=== PATIENT | female | born 1980 | race Hispanic/Latino ===

== ENCOUNTER 2018-08-09 11:39 | Inpatient (IN) ==
[2018-08-09] MEDS ORDERED: RINGER'S SOLUTION,LACTATED 1,000 ML IV PRN ×2 (11:42→15:33)
[2018-08-09 12:43] LABS: Hematocrit 30.7 % (37.0-47.0); Hemoglobin 9.8 gm/dL (12.5-16.0); Mean Cell Volume 93.9 fl (78-100); Mean Corpuscular Hgb Conc 31.9 g/dl (32-36); Neutrophil # 7.6 K/mm3 (1.3-6.0); Neutrophil % 74.7 % (42-75.0); Platelet Count 271 K/mm3 (150-450); Red Blood Count 3.27 M/mm3 (4.2-5.4); Red Cell Distribution Width 14.9 % (11.5-14.0); White Blood Count 10.2 K/mm3 (4.0-10.5)
[2018-08-09 13:03] LABS: Urine Bilirubin Negative (NEGATIVE); Urine Blood Negative /ul (NEGATIVE); Urine Ketone Negative (NEGATIVE); Urine Nitrite Negative (NEGATIVE); Urine Protein Negative (NEGATIVE); Urine Specific Gravity 1.025 SP.GR. (1.005-1.010); Urine Urobilinogen Normal (NORMAL); Urine pH 6.5 pH (5.0-7.0)
[2018-08-09 13:13] LABS: Urine Appearance Slightly Cloudy (CLEAR); Urine Bacteria 1+; Urine Color Dark Yellow; Urine RBC None Seen /hpf (0-5); Urine WBC 0-5 /hpf (0-5)
[2018-08-09] MEDS ORDERED: CITRIC ACID/SODIUM CITRATE 60 ML BTL PO ONE (13:17)
[2018-08-09 14:09] LABS: Albumin * 2.5 gm/dl (3.4-5.0); Anion Gap 12.7 mmol/L (6.8-13.8); BUN/Creatinine Ratio 12.5 (9.0-21.6); Bilirubin, Total 0.4 mg/dL (0.0-1.1); Ca. Corrected For Albumin 10.1 mg/dL (8.4-10.2); Calcium * 9.2 mg/dL (7.9-10.9); Carbon Dioxide 26.5 mmol/L (24-32.6); Potassium 4.2 mmol/L (3.4-4.6); Total Protein 6.1 gm/dL (6.2-8.2)
[2018-08-09] MEDS ORDERED: LABETALOL HCL 5 MG/ML SYRINGE IV ONE (15:02)
[2018-08-09] MEDS ORDERED: ceFAZolin SODIUM 3 GM in DEXTROSE 5 % IN WATER 100 ML IV ONE ×2 (15:33)
[2018-08-09] MEDS ORDERED: OXYTOCIN 20 UNITS in RINGER'S SOLUTION,LACTATED 1,000 ML IV ONE (15:33)
--- NOTE | 2018-08-09 15:54 | ANES ---
Anesthesia Pre Procedure Eval Vitals/Labs: Last Vital Signs Temp 36.3 C 08/09/18 12:23 Pulse 90 08/09/18 12:23 Resp 18 08/09/18 12:23 BP 136/66 08/09/18 12:23 Pulse Ox 100 08/09/18 12:23 HOME MEDICATIONS aspirin 81 mg chewable tablet 81 mg PO DAILY 03/07/18 [Last Taken 08/08/18] famotidine 20 mg tablet 20 mg PO BID 84 Days #168 tab 06/08/18 [Last Taken 08/08/18] ferrous sulfate 325 mg (65 mg iron) tablet 325 mg PO BID #60 tab 06/08/18 [Last Taken 08/08/18] vitamin,calcium,fdzlzbnj-lgan-sbovc acid tablet 1 tab PO DAILY #30 tab 06/08/18 [Last Taken 07/23/18] blood-glucose meter kit See Dose Instructions .ROUTE .MEDSUPPLY #1 ea 07/11/18 [Last Taken Unknown] insulin syringes (disposable) 1 mL See Dose Instructions .ROUTE .MEDSUPPLY #500 ea 07/19/18 [Last Taken 08/08/18] blood sugar diagnostic strips See Dose Instructions .ROUTE .MEDSUPPLY #100 ea 07/31/18 [Last Taken Unknown] escitalopram 20 mg tablet 20 mg PO DAILY #30 tab 07/31/18 [Last Taken 08/08/18] lancets 28 gauge See Dose Instructions .ROUTE .MEDSUPPLY #100 ea 07/31/18 [Last Taken 08/08/18] levothyroxine 100 mcg capsule 200 mcg PO DAILY 90 Days #180 cap 07/31/18 [Last Taken 08/09/18] insulin NPH isophane U- 100 human 100 unit/mL subcutaneous suspension 24 unit SUBCUT HS #10 ml 08/03/18 [Last Taken 08/08/18] Allergies/Adverse Reactions: Allergies Allergy/AdvReac Type Severity Reaction Status Date / Time Penicillins Allergy Unknown rash Verified 08/09/18 12:11 - Planned Procedure Planned Procedure: C SECTION Medication List Reviewed:: Yes Allergies Verified: Yes Medical History (Last Reviewed 08/09/18 @ 15:53 by Santana Stephens CRNA) Chronic hypertension during (Acute) History of LEEP (loop electrosurgical excision procedure) of cervix complicating (Acute) Hypothyroid (Chronic) BMI 50.0-59.9, adult (Chronic) Anxiety and depression (Chronic) Advanced maternal age affecting , antepartum (Acute) AMA (advanced maternal age) multigravida 35+ 2018 Anemia Onset Date: 06/02/18 w/ BMI 50.0-59.9, adult Onset Date: 01/10/18 Body piercing ears Hx LEEP (loop electrosurgical excision procedure), cervix, Onset Date: 01/10/18 GAMA (obstructive sleep apnea) Onset Date: Unknown CPAP Settings-4cm Anxiety Onset Date: Unknown Depression Onset Date: Unknown Hypothyroid Onset Date: Unknown Stress incontinence Onset Date: Unknown resolved with mid-urethral sling Abnormal Pap smear of cervix Onset Date: Unknown Cervical dysplasia Onset Date: ~2015 [facility] I Surgical History (Last Reviewed 08/09/18 @ 15:53 by Santana Stephens CRNA) H/O LEEP Onset Date: ~2015 [place] I History of cryosurgery Onset Date: ~12/2016 of the cervix History of pubovaginal sling Onset Date: ~09/2015 Cystoscopy assisted Pubovaginal sling, using transvaginal mid-urethral sling Hx of cystoscopy Onset Date: ~09/2015 Cystoscopy assisted Pubovaginal sling, using transvaginal mid-urethral sling Family History (Last Reviewed 08/09/18 @ 15:53 by Santana Stephens CRNA) Father Hypertension Hypothyroidism Mother Hypertriglyceridemia - Family Anesthesia History Family History:: no untoward family reactions to anesthesia - Airway/Neck/Teeth Denture Type: None Neck Exam: full range of motion Mallampatti Score: 3 Thyromental (T-M) distance: > 6 cm Mandibulo Hyoid distance: > 3 cm - Respiratory Respiratory Physical: lungs clear Smoking Status: Never smoker Sleep Apnea currently treated: Yes - Cardiovascular Cardiac History: hypertension Tolerate Activity: Fair Heart Sounds: S1 & S2, Regular - Anesthesia Assessment and Plan ASA Class: PS, II Anesthesia Type Plan: Spinal Planned difficult intubation/equipment available: No
--- NOTE | 2018-08-09 16:09 | HP ---
Chief Complaint - Chief Complaint Date of Service: 08/09/18 Time of Service: 15:37 Chief Complaint: contractions History of Present Illness: 38 yo at 37 4/7 wks presents to L&D complaining of contractions of increasing intensity and frequency since early this am. Patient's blood pressures were normal until the pain of her contractions increased. She does complain of a mild occipital headache but denies other complaints. Preeclamptic labs WNL. This complicated by AMA, anemia, anxiety/depression - on meds, CHTN - no meds, GDM - insulin dependent, hypothryoid, morbid obesity, and h/o transobturator midurethral sling - refusing , h/o LEEP, LGA infant on ultrasound. Rh positive Rubella immune GBS positive Medical History (Last Reviewed 08/03/18 @ 11:24 by Layla Michael RN) Chronic hypertension during (Acute) History of LEEP (loop electrosurgical excision procedure) of cervix complicating (Acute) Hypothyroid (Chronic) BMI 50.0-59.9, adult (Chronic) Anxiety and depression (Chronic) Advanced maternal age affecting , antepartum (Acute) AMA (advanced maternal age) multigravida 35+ 2018 Anemia Onset Date: 06/02/18 w/ BMI 50.0-59.9, adult Onset Date: 01/10/18 Body piercing ears Hx LEEP (loop electrosurgical excision procedure), cervix, Onset Date: 01/10/18 GAMA (obstructive sleep apnea) Onset Date: Unknown CPAP Settings-4cm Anxiety Onset Date: Unknown Depression Onset Date: Unknown Hypothyroid Onset Date: Unknown Stress incontinence Onset Date: Unknown resolved with mid-urethral sling Abnormal Pap smear of cervix Onset Date: Unknown Cervical dysplasia Onset Date: ~2015 [facility] I Surgical History: Surgical History (Last Reviewed 08/03/18 @ 11:24 by Layla Michael RN) H/O LEEP Onset Date: ~2015 [facility] I History of cryosurgery Onset Date: ~12/2016 of the cervix History of pubovaginal sling Onset Date: ~09/2015 Cystoscopy assisted Pubovaginal sling, using transvaginal mid-urethral sling Hx of cystoscopy Onset Date: ~09/2015 Cystoscopy assisted Pubovaginal sling, using transvaginal mid-urethral sling Family History: Family History (Last Reviewed 08/03/18 @ 11:24 by Layla Michael RN) Father Hypertension Hypothyroidism Mother Hypertriglyceridemia Social History: Preferred Language Mohawk Do you have any pentecostalism or No cultural preference? Smoking Status Never smoker (Last Updated 08/07/18 @ 11:50 by Stevie Patten DO) No Social History Section defined Review Of Systems (GEN) - Review of Systems Generalized/Overall Review: Present: No Symptoms Reported EENTM: Present: No Symptoms Reported Respiratory: Present: No Symptoms Reported Cardiac: Present: No Symptoms Reported Abdominal: Present: Abdominal Pain, Other - contractions Genitourinary: Present: No Symptoms Reported Musculoskeletal: Present: No Symptoms Reported Neurological: Present: No Symptoms Reported, Headache - mild post-occipital Skin: Present: No Symptoms Reported Endocrine: Present: No Symptoms Reported Allergies/Adverse Reactions: Allergies Allergy/AdvReac Type Severity Reaction Status Date / Time Penicillins Allergy Unknown rash Verified 08/09/18 12:11 Home Medications: HOME MEDICATIONS aspirin 81 mg chewable tablet 81 mg PO DAILY 03/07/18 [Last Taken 08/08/18] famotidine 20 mg tablet 20 mg PO BID 84 Days #168 tab 06/08/18 [Last Taken 08/08/18] ferrous sulfate 325 mg (65 mg iron) tablet 325 mg PO BID #60 tab 06/08/18 [Last Taken 08/08/18] vitamin,calcium,zkjmavit-cwsl-xfckt acid tablet 1 tab PO DAILY #30 tab 06/08/18 [Last Taken 07/23/18] blood-glucose meter kit See Dose Instructions .ROUTE .MEDSUPPLY #1 ea 07/11/18 [Last Taken Unknown] insulin syringes (disposable) 1 mL See Dose Instructions .ROUTE .MEDSUPPLY #500 ea 07/19/18 [Last Taken 08/08/18] blood sugar diagnostic strips See Dose Instructions .ROUTE .MEDSUPPLY #100 ea 07/31/18 [Last Taken Unknown] escitalopram 20 mg tablet 20 mg PO DAILY #30 tab 07/31/18 [Last Taken 08/08/18] lancets 28 gauge See Dose Instructions .ROUTE .MEDSUPPLY #100 ea 07/31/18 [Last Taken 08/08/18] levothyroxine 100 mcg capsule 200 mcg PO DAILY 90 Days #180 cap 07/31/18 [Last Taken 08/09/18] insulin NPH isophane U- 100 human 100 unit/mL subcutaneous suspension 24 unit SUBCUT HS #10 ml 08/03/18 [Last Taken 08/08/18] Exam - Exam Vital Signs: Vital Signs - Last Taken Temp 36.3 C 08/09/18 12:23 Pulse 90 08/09/18 12:23 Resp 18 08/09/18 12:23 BP 136/66 08/09/18 12:23 Pulse Ox 100 08/09/18 12:23 Constitutional: Present: Alert, Oriented x3, Cooperative, Mild distress ENT Exam: Present: hearing grossly normal Neck: Present: non-tender, other - MP- 3. Absent: thyromegaly Breasts: Present: Exam deferred Respiratory: Present: lungs clear, no respiratory distress Cardiovascular/Chest: Present: normal peripheral pulses, regular rate, rhythm, no edema Abdomen: Present: nontender, no rebound tenderness, other - gravid /Rectal: Present: Other - cl/50/-2 Extremity: Present: no pedal edema, no calf tenderness Skin Exam: Present: normal color, warm/dry, no cyanosis Lymphatic: Present: no adenopathy Neurologic: Present: no motor/sensory deficits, normal mood/affect, oriented x 3 Appearance: Present: appropriate appearance, appropriate insight Eye contact: Present: cooperative, good eye contact, normal speech Thoughts: Present: normal thought pattern Diagnostic Studies: Abnormal Lab Results 08/09/18 08/09/18 08/09/18 Range/Units 12:35 12:35 12:35 RBC 3.27 L (4.2-5.4) M/mm3 Hgb 9.8 L (12.5-16.0) gm/dL Hct 30.7 L (37.0-47.0) % MCHC 31.9 L (32-36) g/dl RDW 14.9 H (11.5-14.0) % Lymphocytes % 19.8 L (20-51) % Neutrophils # 7.6 H (1.3-6.0) K/mm3 ALT 14 L (19-67) U/L Total Protein 6.1 L (6.2-8.2) gm/dL Albumin 2.5 L (3.4-5.0) gm/dl Ur Epithelial Cells (0-5) /hpf Urine Bacteria (NONE) U Random Total Protein 20.0 H (0-12) mg/dL 08/09/18 Range/Units 12:45 RBC (4.2-5.4) M/mm3 Hgb (12.5-16.0) gm/dL Hct (37.0-47.0) % MCHC (32-36) g/dl RDW (11.5-14.0) % Lymphocytes % (20-51) % Neutrophils # (1.3-6.0) K/mm3 ALT (19-67) U/L Total Protein (6.2-8.2) gm/dL Albumin (3.4-5.0) gm/dl Ur Epithelial Cells 10-25 H (0-5) /hpf Urine Bacteria 1+ H (NONE) U Random Total Protein (0-12) mg/dL Laboratory Results WBC 10.2 K/mm3 (4.0-10.5) 08/09/18 12:35 RBC 3.27 M/mm3 (4.2-5.4) L 08/09/18 12:35 Hgb 9.8 gm/dL (12.5-16.0) L 08/09/18 12:35 Hct 30.7 % (37.0-47.0) L 08/09/18 12:35 MCV 93.9 fl (78-100) 08/09/18 12:35 MCH 30.0 pg (27-31) 08/09/18 12:35 MCHC 31.9 g/dl (32-36) L 08/09/18 12:35 RDW 14.9 % (11.5-14.0) H 08/09/18 12:35 Plt Count 271 K/mm3 (150-450) 08/09/18 12:35 MPV 10.0 fl (8-12.5) 08/09/18 12:35 Immature Gran % (Auto) 0.30 % (0.001-0.429) 08/09/18 12:35 Immature Gran # (Auto) 0.03 K/mm3 (0.000-0.0310) 08/09/18 12:35 Neutrophils % 74.7 % (42-75.0) 08/09/18 12:35 Lymphocytes % 19.8 % (20-51) L 08/09/18 12:35 Monocytes % 4.3 % (0.0-9) 08/09/18 12:35 Eosinophils % 0.8 % (0.0-3.0) 08/09/18 12:35 Basophils % 0.1 % (0.0-1.0) 08/09/18 12:35 Nucleated RBC % 0.0 k/mm3 (0-1) 08/09/18 12:35 Neutrophils # 7.6 K/mm3 (1.3-6.0) H 08/09/18 12:35 Lymphocytes # 2.02 k/mm3 (1.5-3.5) 08/09/18 12:35 Monocytes # 0.4 k/mm3 (0.0-1.0) 08/09/18 12:35 Eosinophils # 0.1 k/mm3 (0.0-0.7) 08/09/18 12:35 Absolute Basophils 0.0 k/mm3 (0.0-0.1) 08/09/18 12:35 Sodium 140 mmol/L (132-142) 08/09/18 12:35 Plasma Sodium 140 mmol/L (130-142) 08/09/18 12:35 Potassium 4.2 mmol/L (3.4-4.6) 08/09/18 12:35 Chloride 105 mmol/L (97-106) 08/09/18 12:35 Carbon Dioxide 26.5 mmol/L (24-32.6) 08/09/18 12:35 Anion Gap 12.7 mmol/L (6.8-13.8) 08/09/18 12:35 BUN 8 mg/dL (3-23) 08/09/18 12:35 Creatinine 0.64 mg/dL (0.4-1.4) 08/09/18 12:35 Est GFR (Non-Af Amer) 111 mL/min (60-130) D 08/09/18 12:35 BUN/Creatinine Ratio 12.5 (9.0-21.6) 08/09/18 12:35 Random Glucose 70 mg/dL (70-110) 08/09/18 12:35 Calcium 9.2 mg/dL (7.9-10.9) 08/09/18 12:35 Calcium Adj for Albumin 10.1 mg/dL (8.4-10.2) 08/09/18 12:35 Total Bilirubin 0.4 mg/dL (0.0-1.1) 08/09/18 12:35 AST 15 U/L (0-48) 08/09/18 12:35 ALT 14 U/L (19-67) L 08/09/18 12:35 Alkaline Phosphatase 82 U/L (50-170) 08/09/18 12:35 Total Protein 6.1 gm/dL (6.2-8.2) L 08/09/18 12:35 Albumin 2.5 gm/dl (3.4-5.0) L 08/09/18 12:35 Urine Color Dark yellow 08/09/18 12:45 Urine Appearance Slightly cloudy (CLEAR) 08/09/18 12:45 Urine pH 6.5 pH (5.0-7.0) 08/09/18 12:45 Ur Specific [place] 1.025 SP.GR. (1.005-1.010) 08/09/18 12:45 Urine Protein Negative mg/dL (NEGATIVE) 08/09/18 12:45 Urine Glucose (UA) Negative mg/dL (NEGATIVE) 08/09/18 12:45 Urine Ketones Negative mg/dL (NEGATIVE) 08/09/18 12:45 Urine Blood Negative /ul (NEGATIVE) 08/09/18 12:45 Urine Nitrate Negative (NEGATIVE) 08/09/18 12:45 Urine Bilirubin Negative mg/dl (NEGATIVE) 08/09/18 12:45 Urine Urobilinogen Normal EU/dl (NORMAL) 08/09/18 12:45 Ur Leukocyte Esterase Negative /ul (NEGATIVE) 08/09/18 12:45 Urine RBC None seen /hpf (0-5) 08/09/18 12:45 Urine WBC 0-5 /hpf (0-5) 08/09/18 12:45 Ur Epithelial Cells 10-25 /hpf (0-5) H 08/09/18 12:45 Urine Bacteria 1+ (NONE) H 08/09/18 12:45 Ur Random Creatinine 166.8 mg/dL (60-200) 08/09/18 12:35 U Random Total Protein 20.0 mg/dL (0-12) H 08/09/18 12:35 U [place] Prot/Creat Ratio 120 mg/gm (0-199) 08/09/18 12:35 Assessment/Plan - Assessment/Plan (1) Gestational diabetes mellitus (GDM) requiring insulin Problem: Acute (2) History of suburethral sling procedure Problem: Acute (3) Chronic hypertension during Problem: Acute (4) History of LEEP (loop electrosurgical excision procedure) of cervix complicating Problem: Acute Qualifiers: Trimester: third trimester Qualified Code(s): O34.43 - Maternal care for other abnormalities of cervix, third trimester; Z98.890 - Other specified postprocedural states (5) Hypothyroid Problem: Chronic Qualifiers: Hypothyroidism type: acquired Qualified Code(s): E03.9 - Hypothyroidism, unspecified (6) BMI 50.0-59.9, adult Problem: Chronic (7) Anxiety and depression Problem: Chronic (8) Advanced maternal age affecting , antepartum Problem: Acute (9) First stage of labor established Assessment: R/b/a to primary c/s discussed with patient and spouse. She still desires to proceed with c/s. Elevated blood pressures due to pain, responded to IV Labetolol 20mg x 1. If remain elevated after epidural and immediately PP, will start on magnesium sulfate. Problem: Acute
[2018-08-09] MEDS ORDERED: diphenhydrAMINE HCL 25 MG CAPSULE PO PRN (18:13)
[2018-08-09] MEDS ORDERED: SENNOSIDES 8.6 MG TABLET PO PRN (18:13)
[2018-08-09] MEDS ORDERED: BISACODYL 10 MG SUPP.RECT RC PRN (18:13)
[2018-08-09] MEDS ORDERED: SIMETHICONE 80 MG TAB.CHEW PO PRN (18:13)
[2018-08-09] MEDS ORDERED: ONDANSETRON HCL/PF 2 MG/ML VIAL IV PRN (18:13)
--- NOTE | 2018-08-09 18:22 | OR ---
Operative Report - Dictated Report Narrative: Indication: 38-year-old 1 para 0 at 37-4/7 weeks with prior suburethral sling surgery presents to labor and delivery in labor and desires section to prevent pelvic floor trauma/dysfunction. Status: Planned Pre Operative Diagnosis: 37-4/7 week intrauterine , labor, prior pelvic floor surgery desiring section to avoid further pelvic floor dysfunction. Post Operative Diagnosis: Same. Procedure Preformed: Primary Low Transverse Section Surgeon: Yoli Patten DO Custom Tailor Apprentice: OR Staff Anesthesia: Epidural Estimated Blood Loss: 400 mL Urine Output: 150 mL of dark clear urine Fluids Given: 1400 mL of crystalloid Drains: Dunaway to gravity Surgical Complications: None Specimens: Placenta to pathology Findings: Vigorous crying male born at 1706 on 08/09/2017 in cephalic presentation with Apgars 9 and 9, weighing 3526 g. Nuchal cord 1 easily reduced. Normal uterus, tubes, ovaries. Technique: The patient was taken to the operating room and placed in dorsal supine position with a left lateral tilt. After adequate epidural anesthesia, dunaway catheter insertion,SCDs placed, and 3 g of Ancef IV given preoperatively, the abdominal cavity was entered via a modified Hemal-Vaughn incision. Two rolled laps were placed in the pericolic gutters on either side of the uterus. A transverse incision was made in the lower uterine segment and extended laterally and upwardly with digital traction. Clear fluid was noted upon amniotomy. The infant was delivered easily. The cord was clamped and cut after 30-60 seconds and was handed off to awaiting electro optics engineer. The placenta was allowed to deliver spontaneously. The uterus was cleared of clot and debris. Uterine incision was closed with 0 Vicryl using a running stitch. A second imbricating layer was placed. Excellent hemostasis was noted. Rolled laps were removed from the abdominal cavitiy. The peritoneum was closed with a running 3-0 Monocryl. The same suture was used to approximate the rectus and pyramidalis muscles. The fascia was closed with a running 0 Vicryl. The subcutaneous layer was closed with a running 3-0 Monocryl. The same suture was used to approximate the subdermal layer. The skin was closed with a running 4-0 Monocryl and Dermabond. Sponge, lap, needle, and instrument count were correct x 2. Disposition: The patient was transferred to post anesthesia care unit in good condition History for MU Definition: * The number of deliveries resulting in a live the patient experienced prior to current hospitalization * The previous delivery of live twins or any live multiple gestation is considered one live event. *If primagravida or nulliparous is documented select zero for the number of previous live births. Live Events: 0
--- NOTE | 2018-08-09 18:39 | ANES ---
Post Anesthesia Assessment - Vital Signs Vitals: Last Vital Signs Temp 36.4 C 08/09/18 18:20 Pulse 85 08/09/18 18:20 Resp 18 08/09/18 18:20 BP 124/58 08/09/18 18:20 Pulse Ox 100 08/09/18 18:20 Airway Patency: Normal - Mental Status Level Of Consciousness: Awake - Pain Level Pain Score: 3 - N/V Assessment Nausea/Vomiting Presence: None Dehydration:: No
--- NOTE | 2018-08-09 18:39 | ANES ---
Post Anesthesia Discharge - Transfer of Care Transfer of Care handoff given to nurse: Yes - Discharge from PACU Discharge from PACU when meets criteria: Yes
[2018-08-09] MEDS: IBUPROFEN 800 MG TABLET PO PRN (18:57)
[2018-08-09] MEDS: oxyCODONE HCL/ACETAMINOPHEN 1 TAB TABLET PO PRN (19:19)
[2018-08-09] MEDS ORDERED: BUPIVACAINE HCL/0.9 % NACL/PF 250 ML EP PRN (20:06)
[2018-08-09] MEDS ORDERED: NALOXONE HCL 1 MG/1 ML SYRG IV PRN (20:06)
[2018-08-09] MEDS: DOCUSATE SODIUM 100 MG CAPSULE PO SCH (21:06)
[2018-08-10] MEDS: IBUPROFEN 800 MG TABLET PO PRN ×4 (01:19→21:04)
[2018-08-10] MEDS: ENOXAPARIN SODIUM 40 MG/0.4 ML SYRG SC SCH ×2 (02:29→17:34)
[2018-08-10] MEDS: oxyCODONE HCL/ACETAMINOPHEN 1 TAB TABLET PO PRN ×3 (03:31→13:31)
[2018-08-10] MEDS: LEVOTHYROXINE SODIUM 100 MCG TABLET PO SCH (07:17)
[2018-08-10] MEDS: ESCITALOPRAM OXALATE 10 MG TAB PO SCH (09:09)
[2018-08-10] MEDS: PRENATAL VITS96/IRON FUM/FOLIC 1 TAB TABLET PO SCH (09:10)
[2018-08-10] MEDS: FERROUS SULFATE 325 MG TABLET PO SCH ×2 (09:10→16:49)
[2018-08-10] MEDS: DOCUSATE SODIUM 100 MG CAPSULE PO SCH ×2 (09:10→21:04)
[2018-08-11] MEDS: ENOXAPARIN SODIUM 40 MG/0.4 ML SYRG SC SCH (01:15)
[2018-08-11] MEDS: oxyCODONE HCL/ACETAMINOPHEN 1 TAB TABLET PO PRN ×2 (02:20→09:52)
[2018-08-11] MEDS: IBUPROFEN 800 MG TABLET PO PRN ×2 (03:13→09:52)
[2018-08-11] MEDS: PRENATAL VITS96/IRON FUM/FOLIC 1 TAB TABLET PO SCH ×2 (07:04→08:24)
[2018-08-11] MEDS: ESCITALOPRAM OXALATE 10 MG TAB PO SCH ×2 (07:05→08:24)
[2018-08-11] MEDS: DOCUSATE SODIUM 100 MG CAPSULE PO SCH ×2 (07:05→08:23)
[2018-08-11] MEDS: FERROUS SULFATE 325 MG TABLET PO SCH ×2 (07:05→08:23)
[2018-08-11 07:32] VITALS: BP 144/80
[2018-08-11] MEDS: LEVOTHYROXINE SODIUM 100 MCG TABLET PO SCH (08:11)
--- NOTE | 2018-08-11 12:44 | PN ---
Subjective - Date and Time Seen Date: 08/11/18 Time: 12:40 Objective - Vitals Vitals: Last Vital Signs Temp Pulse Resp BP Pulse Ox LATE ENTRY for 08/10/18 Patient denies complaints. Pain well controlled. Lochia wnl. Blood sugars mildly elevated Abdomen - soft, appropriately tender Incision -clean, dry, intact uterus - firm, at umbilicus -1 no calf tenderness Impression: Post op day 1 s/p primary section, chronic hypertension, gestational diabetes-fairly stable, morbid obesity, hypothyroidism Plan: Continue routine post-operative/ care Cauti Physician Documentation - Urinary Catheter Management Urethral (Barcenas) Date of Insertion: 08/09/18 Time of Insertion: 16:59 Date of Removal: 08/10/18 Time of Removal: 05:10 Assessment/Plan - Problems/Diagnosis (1) Gestational diabetes mellitus (GDM) requiring insulin Problem: Acute (2) History of suburethral sling procedure Problem: Acute (3) Chronic hypertension during Problem: Acute (4) History of LEEP (loop electrosurgical excision procedure) of cervix complicating Problem: Acute Qualifiers: Trimester: third trimester Qualified Code(s): O34.43 - Maternal care for other abnormalities of cervix, third trimester; Z98.890 - Other specified postprocedural states (5) Hypothyroid Problem: Chronic Qualifiers: Hypothyroidism type: acquired Qualified Code(s): E03.9 - Hypothyroidism, unspecified (6) BMI 50.0-59.9, adult Problem: Chronic (7) Anxiety and depression Problem: Chronic (8) Advanced maternal age affecting , antepartum Problem: Acute (9) First stage of labor established Problem: Acute
--- NOTE | 2018-08-11 12:46 | PN ---
Subjective - Date and Time Seen Date: 08/11/18 Time: 12:44 - Seen this am Objective - Vitals Vitals: Last Vital Signs Temp 36.3 C 08/11/18 07:30 Pulse 96 08/11/18 07:30 Resp 20 08/11/18 07:30 BP 144/80 H 08/11/18 07:30 Pulse Ox 97 08/11/18 07:30 Patient denies complaints. Pain well controlled. Lochia wnl. Abdomen - soft, appropriately tender Incision -clean, dry, intact uterus - firm, at umbilicus -2 no calf tenderness Impression: Post op day 2 s/p primary section Plan: Continue routine post-operative/ care. Routine discharge instructions with the addition of preeclampsia precautions, continue with diabetic diet, hold insulin, continue other home meds as directed. Recommend continuing Lovenox 40 mg subcu daily until 6 weeks . If unable to afford medication, take 150 mg of aspirin daily for 6 weeks. Cauti Physician Documentation - Urinary Catheter Management Urethral (Barcenas) Date of Insertion: 08/09/18 Time of Insertion: 16:59 Date of Removal: 08/10/18 Time of Removal: 05:10 Assessment/Plan - Problems/Diagnosis (1) Gestational diabetes mellitus (GDM) requiring insulin Problem: Acute (2) History of suburethral sling procedure Problem: Acute (3) Chronic hypertension during Problem: Acute (4) History of LEEP (loop electrosurgical excision procedure) of cervix complicating Problem: Acute Qualifiers: Trimester: third trimester Qualified Code(s): O34.43 - Maternal care for other abnormalities of cervix, third trimester; Z98.890 - Other specified postprocedural states (5) Hypothyroid Problem: Chronic Qualifiers: Hypothyroidism type: acquired Qualified Code(s): E03.9 - Hypothyroidism, unspecified (6) BMI 50.0-59.9, adult Problem: Chronic (7) Anxiety and depression Problem: Chronic (8) Advanced maternal age affecting , antepartum Problem: Acute (9) First stage of labor established Problem: Acute
== END 2018-08-11 10:45 | disposition home or self-care (01) | DRG 787 ==
LOC: OBCLINIC 11:39 → OB 15:13
PROVIDERS: ADMIT Obstetrics & Gynecology; ATTEND Obstetrics & Gynecology
CPT/HCPCS: 36415; 59025; 80053; 81001; 82570; 84155; 84156; 85025; 88307